=== PATIENT | male | born 1945 | race Asian ===

== ENCOUNTER 2016-12-19 20:06 | Inpatient (IN) | payer OTHER ==
[~2016-12-19] VITALS: Ht 177.8 cm; Wt 74.8 kg
[2016-12-19 20:59] LABS: Basophils # (auto) 0 uL; Basophils % (auto) 0.5 % (0.0-2.0); DEFINITIVE VIEW TRANSMISSION; Eosinophils # (auto) 0.2 uL; Eosinophils % (auto) 3.1 % (0.0-7.0); Hematocrit 43.4 % (41.0-53.0); Lymphocytes # (auto) 2.6 uL; Lymphocytes % (auto) 37.3 % (10.0-50.0); Mean Corpuscular Hemoglobin 26.7 pg (28.0-32.0); Mean Corpuscular Hgb Conc. 32.3 g/dL (32.0-36.0); Mean Corpuscular Volume 82.7 fL (80.0-100.0); Mean Platelet Volume 9.1 fL (7.4-10.4); Monocytes # (auto) 0.6 uL; Monocytes % (auto) 9.1 % (0.0-12.0); Neutrophils # (auto) 3.5 uL; Platelet Count (auto) 262 10^3/uL (140-450); Red Cell Distribution Width 13.6 % (11.6-16.0); White Blood Cell 7.1 10^3/uL (4.4-10.8)
[2016-12-19 21:23] LABS: Albumin 3.6 g/dL (3.4-5.0); Calcium 9.3 mg/dL (8.5-10.1); Potassium 3.6 mmol/L (3.5-5.1)
[2016-12-19 21:26] LABS: INR 0.97 (0.9-1.15); Partial Thromboplastin Time 27.4 sec (22.64-33.71); Prothrombin Time 10.5 sec (9.37-12.3)
[2016-12-19 21:41] LABS: Bilirubin, Total 0.2 mg/dL (0.2-1.0); Total Protein 8.1 g/dL (6.4-8.2)
[2016-12-19] MEDS ORDERED: cloNIDine HCL 0.1 MG TAB PO ONE (23:00)
[2016-12-20] MEDS ORDERED: cloNIDine HCL 0.1 MG TAB PO PRN (02:30)
[2016-12-20] MEDS ORDERED: MORPHINE SULF INJ 2 MG/ML SYRINGE 1ML IV PRN (02:30)
[2016-12-20] MEDS ORDERED: NITROGLYCERIN 0.4 MG SL TAB SL PRN (02:30)
[2016-12-20] MEDS ORDERED: DEXTROSE (50%) 50ML SYRG IV PRN (02:30)
[2016-12-20 02:38] LABS: Urine Bilirubin Negative (Negative); Urine Blood Negative /uL (Negative); Urine Color Yellow (Yellow); Urine Glucose 4+ mg/dL (Normal); Urine Hyaline Cast MOD /lpf (0 - 2); Urine Ketone Negative (Negative); Urine Mucus FEW (None Seen); Urine Nitrite Negative (Negative); Urine RBC 2 /hpf (0 - 3); Urine Urobilinogen Normal (Negative); Urine pH 6.5 (5.0-8.0)
[2016-12-20] MEDS ORDERED: ENOXAPARIN SOD 100 MG/1 ML SYRINGE SC ONE (03:15)
[2016-12-20] MEDS ORDERED: ASPirin 81 mg TAB PO ONE (03:15)
[2016-12-20 03:40] VITALS: BP 149/72
[2016-12-20] MEDS ORDERED: VENL75TA PO (04:19)
[2016-12-20] MEDS ORDERED: ATOR40TA52 PO (04:19)
[2016-12-20] MEDS ORDERED: GLIP-116 PO (04:19)
[2016-12-20] MEDS ORDERED: POTA-167 PO (04:19)
[2016-12-20] MEDS ORDERED: ATE50T PO (04:19)
[2016-12-20] MEDS ORDERED: LOSA25TA9 PO (04:19)
[2016-12-20] MEDS ORDERED: AML5T PO (04:19)
[2016-12-20 04:41] VITALS: BP 147/92
[2016-12-20] MEDS: POTASSIUM CHL 10 Meq TABLET PO SCH ×2 (06:03→14:27)
[2016-12-20] MEDS: InsuLIN REG 1unit/0.01ml Soln (100units/ml) SC SCH ×3 (06:04→17:25)
[2016-12-20] MEDS: glipiZIDE 5 MG TAB PO SCH ×2 (06:04→17:28)
[2016-12-20] MEDS: ACCU-CHEK COMFORT CURVE STRIP VI SCH ×3 (06:04→17:15)
[2016-12-20] MEDS: SODIUM CHLOR 0.9% PF (SALINE LOCK) 10ML VIAL IV SCH ×2 (06:04→13:29)
[2016-12-20 07:57] LABS: Basophils # (auto) 0.1 uL; Basophils % (auto) 0.9 % (0.0-2.0); DEFINITIVE VIEW TRANSMISSION; Eosinophils # (auto) 0.3 uL; Eosinophils % (auto) 4.1 % (0.0-7.0); Hematocrit 39.4 % (41.0-53.0); Hemoglobin 12.8 g/dL (13.5-17.5); Lymphocytes # (auto) 2.3 uL; Lymphocytes % (auto) 36.9 % (10.0-50.0); Mean Corpuscular Hemoglobin 26.5 pg (28.0-32.0); Mean Corpuscular Hgb Conc. 32.5 g/dL (32.0-36.0); Mean Corpuscular Volume 81.7 fL (80.0-100.0); Monocytes # (auto) 0.6 uL; Monocytes % (auto) 9.7 % (0.0-12.0); Neutrophils % (auto) 48.4 % (37.0-80.0); Platelet Count (auto) 226 10^3/uL (140-450); Red Cell Distribution Width 13.4 % (11.6-16.0); White Blood Cell 6.3 10^3/uL (4.4-10.8)
[2016-12-20 08:00] VITALS: BP 128/85
[2016-12-20 08:13] LABS: BUN/Creatinine Ratio 15.3; Calcium 8.3 mg/dL (8.5-10.1)
[2016-12-20 08:19] VITALS: BP 128/85
[2016-12-20] MEDS ORDERED: POTASSIUM CHL 20 Meq TABLET PO ONE (08:45)
[2016-12-20] MEDS ORDERED: metFORMIN HYDROCHLORIDE 500 MG TAB PO SCH (10:00)
[2016-12-20] MEDS ORDERED: amLODIPine BESYLATE 5 MG TAB PO SCH (10:00)
[2016-12-20] MEDS ORDERED: VENLAFAXINE HCL 37.5mg XR cap PO SCH (10:00)
[2016-12-20] MEDS ORDERED: LOSARTAN POTASSIUM 25 MG TAB PO SCH (10:00)
[2016-12-20] MEDS ORDERED: ATENOLOL 50 MG TAB PO SCH (10:00)
[2016-12-20] MEDS ORDERED: ASPirin-EC 325mg tab PO SCH (10:00)
[2016-12-20] MEDS ORDERED: ENOXAPARIN SOD 80 MG/0.8ML SYRINGE SC SCH (10:00)
[2016-12-20 12:27] VITALS: BP 128/86
[2016-12-20] MEDS ORDERED: ENOXAPARIN SOD 100 MG/1 ML SYRINGE SC SCH (15:00)
[2016-12-20 17:02] VITALS: BP 120/72
[2016-12-20] MEDS ORDERED: ATORVASTATIN 20 MG TAB PO SCH (22:00)
[2016-12-21] MEDS ORDERED: ASPirin-EC 325mg tab PO SCH (10:00)
== END 2016-12-20 21:05 | disposition short-term general hospital (02) | DRG 282 ==
LOC: ER 20:10 → TELE 20:11 → TELE-CENTR 12-20 03:34
PROVIDERS: ADMIT Emergency Medicine; ATTEND Emergency Medicine
DX: I21.4 Non-ST elevation (NSTEMI) myocardial infarction (principal); E11.9 Type 2 diabetes mellitus without complications; E87.6 Hypokalemia; I10 Essential (primary) hypertension; I44.0 Atrioventricular block, first degree; Z86.73 Personal history of transient ischemic attack (TIA), and cerebral infarction without residual deficits
CPT/HCPCS: 36415; 71020; 80048; 80053; 81001; 82962; 83036; 83735; 84484; 85025; 85379; 85610; 85730; 93005; 96372; J1815

== ENCOUNTER 2016-12-25 13:20 | Emergency (ER) | payer OTHER ==
[~2016-12-25] VITALS: Ht 185.4 cm; Wt 78.0 kg
[~2016-12-25 13:20] MED LIST: AML5T PO; ATE50T PO; ATOR40TA52 PO; GLIP-116 PO; LOSA25TA9 PO; POTA-167 PO; VENL75TA PO
[2016-12-25 14:59] VITALS: BP 146/97
[2016-12-25 15:07] LABS: Basophils # (auto) 0 uL; Basophils % (auto) 0.5 % (0.0-2.0); Eosinophils # (auto) 0.2 uL; Eosinophils % (auto) 2.6 % (0.0-7.0); Hematocrit 44.5 % (41.0-53.0); Hemoglobin 14.6 g/dL (13.5-17.5); Lymphocytes # (auto) 1.8 uL; Lymphocytes % (auto) 22.6 % (10.0-50.0); Mean Corpuscular Hgb Conc. 32.8 g/dL (32.0-36.0); Mean Corpuscular Volume 82.4 fL (80.0-100.0); Mean Platelet Volume 9.1 fL (7.4-10.4); Monocytes # (auto) 0.6 uL; Monocytes % (auto) 7.8 % (0.0-12.0); Neutrophils # (auto) 5.4 uL; Neutrophils % (auto) 66.5 % (37.0-80.0); Platelet Count (auto) 261 10^3/uL (140-450); Red Cell Distribution Width 13.7 % (11.6-16.0); White Blood Cell 8.1 10^3/uL (4.4-10.8)
[2016-12-25 15:30] LABS: Albumin 3.5 g/dL (3.4-5.0); BUN/Creatinine Ratio 16.8; Bilirubin, Total 0.2 mg/dL (0.2-1.0); Calcium 9.2 mg/dL (8.5-10.1); Potassium 4.4 mmol/L (3.5-5.1); Total Protein 8.2 g/dL (6.4-8.2)
== END 2016-12-25 15:28 | disposition left against medical advice (07) ==
LOC: ER 13:20 → EDBD 13:20 → ER 15:28
DX: G45.9 Transient cerebral ischemic attack, unspecified (principal); E11.9 Type 2 diabetes mellitus without complications; I10 Essential (primary) hypertension
CPT/HCPCS: 36415; 80053; 84484; 85025; 93005

== ENCOUNTER 2018-03-31 11:09 | Emergency (ER) | payer OTHER ==
[~2018-03-31] VITALS: Ht 185.4 cm; Wt 73.9 kg
[2018-03-31 11:32] VITALS: BP 137/86
[2018-03-31 12:37] LABS: Basophils # (auto) 0.1 uL; Basophils % (auto) 0.7 % (0.0-2.0); Eosinophils # (auto) 0.2 uL; Eosinophils % (auto) 2.4 % (0.0-7.0); Hematocrit 46.4 % (41.0-53.0); Hemoglobin 15.8 g/dL (13.5-17.5); Lymphocytes # (auto) 2.6 uL; Lymphocytes % (auto) 27.8 % (10.0-50.0); Mean Corpuscular Hemoglobin 28.3 pg (28.0-32.0); Mean Corpuscular Volume 83.3 fL (80.0-100.0); Monocytes # (auto) 0.7 uL; Neutrophils # (auto) 5.7 uL; Neutrophils % (auto) 61.1 % (37.0-80.0); Nucleated Red Blood Cells % 0.1 %; Platelet Count (auto) 208 10^3/uL (140-450); Red Blood Cells 5.57 10^6/uL (4.5-5.90); Red Cell Distribution Width 13.2 % (11.8-14.3); White Blood Cell 9.4 10^3/uL (4.4-10.8)
[2018-03-31 12:52] LABS: Albumin 3.7 g/dL (3.4-5.0); BUN/Creatinine Ratio 15.5; Bilirubin, Total 0.4 mg/dL (0.2-1.0); Calcium 9.2 mg/dL (8.5-10.1); Potassium 3.9 mmol/L (3.5-5.1); Total Protein 8.4 g/dL (6.4-8.2)
== END 2018-03-31 13:04 | disposition left against medical advice (07) ==
LOC: EDBD 11:09 → EDUNIT# 11:09 → ER 11:09
DX: R07.9 Chest pain, unspecified (principal); Z53.21 Procedure and treatment not carried out due to patient leaving prior to being seen by health care provider
CPT/HCPCS: 36415; 71046; 80053; 84484; 85025; 93005